=== PATIENT | female | born 1945 | race Caucasian/White ===

== ENCOUNTER 2025-10-26 17:47 | Observation (INO) ==
--- NOTE | 2025-10-26 18:29 | Emergency Department Note ---
Impression & Plan Anemia, Acute renal failure, Acute hyperkalemia, Urinary tract infection ED Provider Note NAME: SAMARA FERRELL AGE: 79 SEX: F : 1945 ARRIVES VIA: Walk-In INFORMANT: Patient, ED PROVIDER(S): Ravin Collins DO CHIEF COMPLAINT: Weakness HPI: The patient is a 79-year-old female who presented to the emergency department for evaluation of generalized weakness. She has a history of renal cell cancer. The patient had routine laboratory studies done. She was told to come to the emergency department for possible transfusion. The patient denies having any current rectal bleeding. She states that several days ago she did note some bloody stool but this was very short-lived. She denies having any vomiting. She denies having any chest pain. She has had some shortness of breath with exertion. ROS: See above HPI for pertinent positives & negatives. A total of 10 systems reviewed and were otherwise negative. PAST MEDICAL HISTORY: See Below PAST SURGICAL HISTORY: See Below FAMILY HISTORY: See Below SOCIAL HISTORY: See Below HOME MEDICATIONS: See Below ALLERGIES: See Below VITALS: See Below PHYSICAL EXAMINATION: GENERAL: Patient is awake alert in no acute distress patient is resting comfortably and showing no signs of anxiety EYES: The conjunctivae are clear. The pupils are round and reactive. EARS, NOSE, MOUTH AND THROAT: The nose is without any evidence of any deformity. NECK: The neck is nontender and supple. RESPIRATORY: Normal respiratory effort is noted there is no evidence of wheezing rhonchi or rales CARDIOVASCULAR: Regular rate and rhythm noted there no murmurs rubs or gallops normal S1 normal S2. GASTROINTESTINAL: The abdomen is soft. Abdomen is nontender. MUSCULOSKELETAL/EXTREMITIES: There is no evidence of gross deformity full range of motion is noted in the hips and shoulders. SKIN: There is no obvious evidence of any rash. There are no petechiae, pallor or cyanosis noted. NEUROLOGIC: Patient is awake alert and oriented x3 MEDICAL DECISION MAKING: The patient is a 79-year-old female who presented to the emergency department for an evaluation. The patient has been experiencing generalized weakness. She also had some episodes of blood per rectum last week. The patient was sent for laboratory studies and was told to go to the emergency department because of anemia. The patient had stable vital signs in emergency department. I discussed the patient's laboratory and radiographic studies with her. She was also found to have a significant elevation in her creatinine compared to baseline as well as an elevated potassium. She was treated with IV fluids IV dextrose IV insulin and DuoNeb therapy. She did have a [place] placed. She was found have signs of urinary tract infection. She was started on antibiotics. I discussed her condition with the on-call [facility] hospitalist. They have agreed to evaluate the patient in the emergency department for further management and disposition. Triage Nursing notes reviewed. Prior medical records reviewed Vital Signs: reviewed and remarkable for no significant abnormalities Differential diagnosis: Infection, dehydration, metabolic abnormality, hypo/hyperglycemia, electrolyte disturbance, anemia, hypoxia, cardiac sources, intracerebral event, toxicologic, neurologic, as well as other pathologies. ER treatment provided: See below Diagnostics interpreted by me: ECG: EKG was obtained in the emergency department. My interpretation is normal sinus rhythm at 71 bpm. There is no ectopy. Low voltage was noted throughout. Nonspecific T wave abnormalities were also appreciated. QTc was 412 ms. Cardiac Monitoring: An order was placed for continuous cardiac monitoring. The monitor shows a rate of 87 bpm with sinus rhythm. Laboratory studies: As stated above and show below. Imaging studies: See below. Radiographic imaging was reviewed by myself Consultation(s): Dr. Hastings was notified about the patient. He will evaluate the patient in the emergency department. ED COURSE: Procedures: none Critical Care: I have personally spent greater than 40 minutes of critical care time in the direct management of this patient. This includes bedside care, interpretation of diagnostic studies, and testing, discussion with consultants, patient, and family members, and other required patient management activities. This 40 minutes is in excess of all separately billable procedures. 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 Peak velocity 4.0 m/s. Bilateral carotid artery stenosis Carotid duplex 06/28/25 noted JOSE > 70% stenosis. 50-69% LICA stenosis. Patient was referred by cardio to neuro vascular (Dr. Noble) who obtained updated carotid duplex done 08/31/25 that showed < 50% B/L ICA stenosis. 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 [place] Hx of cholecystectomy H/O carpal tunnel repair R/L Status post subacromial decompression Distal clavicle with Left shoulder surgery () Status post labral repair of shoulder Left shoulder () H/O bilateral breast reduction surgery H/O tubal ligation H/O hernia repair Incisional hernia Hx of appendectomy Family History Mother Hypercholesterolemia Myocardial infarction Hypertension Brother Hypercholesterolemia Myocardial infarction Hypertension Grandmother (Maternal) Diabetes Other No family history of adverse response to anesthesia Social History Smoking Status: Never smoker Second Hand Exposure: No; Do You Dip or Chew Tobacco: No; Hx Alcohol Use: No Hx Substance Use: No Preferred Language: Romanian Communication Ability: Effective Oracle Apex Developer Required: No Beliefs That Will Affect Care: None Current Living Situation: Spouse current occupational status: disabled Other Information That Helps Us Care for You: No Feels Safe at Home: Yes Safety Concerns: Feels Safe At This Time caffeine: Yes (coffee-daily) Seatbelt Use: always Assistive Devices: Cane and Walker Allergies Allergies Allergy/AdvReac Type Severity Reaction Status Date / Time Penicillins Allergy Severe hives and Verified 09/29/25 09:54 headache Home Meds Home Medications Medication Instructions Recorded Confirmed albuterol sulfate 90 mcg/actuation 2 puff inhalation QID PRN SOB, 08/17/24 09/29/25 aerosol inhaler cough ferrous gluconate 240 mg (27 mg 240 mg PO QAM 08/17/24 09/29/25 iron) tablet fluticasone 250 mcg-salmeterol 50 1 inh inhalation BID 08/17/24 09/29/25 mcg/dose blistr powdr for inhalation (Advair Diskus) montelukast 10 mg tablet 10 mg PO HS 08/17/24 09/29/25 (Singulair) rosuvastatin 10 mg tablet 10 mg PO HS 08/17/24 09/29/25 sertraline 100 mg tablet 100 mg PO BID 08/17/24 09/29/25 trazodone 150 mg tablet 150 mg PO HS 08/17/24 09/29/25 aspirin 81 mg chewable tablet 81 mg PO HS 09/06/25 09/29/25 losartan 100 mg tablet 100 mg PO QAM 09/29/25 09/29/25 multivitamin 1 tab PO QAM 09/29/25 09/29/25 Previous Rx's Medication Instructions Recorded oxybutynin chloride 5 mg tablet 5 mg PO BID #90 tabs 09/06/25 oxybutynin chloride 5 mg tablet 5 mg PO Q8H PRN bladder spasms #10 10/11/25 tabs phenazopyridine 200 mg tablet 200 mg PO Q8H PRN pain #10 tabs 10/11/25 (Pyridium) tamsulosin 0.4 mg capsule 0.4 mg PO HS #30 caps 10/11/25 ciprofloxacin HCl 500 mg tablet 500 mg PO BID #14 tabs 10/20/25 (Cipro) Results & Data (ED) Vital Signs Vital Signs - 24 hr 10/26/25 17:50 10/26/25 18:51 10/26/25 18:51 Temperature 36.7 C Temperature Source Temporal Artery Scan Pulse Rate 76 80 81 Pulse Rate [Right Finger] Pulse Rate from SpO2 Sensor 81 Respiratory Rate 18 29 H Respiratory Effort / Characteristics Non-Labored Spontaneous Respiratory Depth Normal Blood Pressure 117/56 L 140/90 Blood Pressure Mean 76 106 Blood Pressure Position Sitting Pulse Oximetry 99 97 Oxygen Delivery Method Room Air Sepsis Recent Fever Within 48 Hours No Sepsis New/Unexplained Change in Mental Status No Sepsis Action Taken by Nursing No Action Required 10/26/25 19:00 10/26/25 20:00 10/26/25 20:13 Temperature Temperature Source Pulse Rate 78 71 Pulse Rate [Right Finger] 73 Pulse Rate from SpO2 Sensor Respiratory Rate 18 16 15 Respiratory Effort / Characteristics Non-Labored Spontaneous Respiratory Depth Blood Pressure 125/97 133/79 Blood Pressure Mean 106 97 Blood Pressure Position Pulse Oximetry 99 99 99 Oxygen Delivery Method Room Air Sepsis Recent Fever Within 48 Hours Sepsis New/Unexplained Change in Mental Status Sepsis Action Taken by Nursing 10/26/25 20:31 Temperature Temperature Source Pulse Rate 96 H Pulse Rate [Right Finger] Pulse Rate from SpO2 Sensor Respiratory Rate 18 Respiratory Effort / Characteristics Respiratory Depth Blood Pressure 164/94 H Blood Pressure Mean 131 Blood Pressure Position Pulse Oximetry 100 Oxygen Delivery Method Nebulizer Sepsis Recent Fever Within 48 Hours Sepsis New/Unexplained Change in Mental Status Sepsis Action Taken by [facility] Medications Current Medication List: was personally reviewed by me Laboratory Data Attestation: I reviewed the patient's lab results. 10/26/25 18:29 10/26/25 21:39 Lab Results 10/26/25 10/26/25 10/26/25 Range/Units 18:29 19:16 20:30 WBC 3.16 L (4.8-10.8) K/ul RBC 2.26 L (4.20-5.40) M/uL Hgb 6.5 L* (12.0-16.0) g/dL Hct 20.0 L* (37.0-47.0) % MCV 88.5 (80.0-100.0) fL MCH 28.8 (25.0-34.0) pg MCHC 32.5 (32.0-36.0) g/dL RDW Std Deviation 44.9 (36.4-46.3) fL RDW Coeff of Shereen 14.0 (11.5-14.5) % Plt Count 136 (130-400) K/uL MPV 10.2 (9.4-12.4) fL Immature Gran % (Auto) 0.6 % Neut % (Auto) 63.4 % Lymph % (Auto) 24.1 % Cass % (Auto) 6.3 % Eos % (Auto) 4.7 % Baso % (Auto) 0.9 % Neut # (Auto) 2.00 (1.40-6.50) K/uL Lymph # (Auto) 0.76 L (1.20-3.40) K/uL Cass # (Auto) 0.20 (0.11-0.59) K/uL Eos # (Auto) 0.15 (0.00-0.50) K/uL Baso # (Auto) 0.03 (0.00-0.20) K/uL Immature Gran # (Auto) 0.02 (0.01-0.20) K/uL Polychromasia 1+ PT 11.4 (9.0-12.0) Seconds INR 1.1 (0.9-1.1) APTT 27 (21-31) Seconds PTT Ratio 1.0 Sodium 136 (136-145) mmol/L Potassium 6.1 H* (3.5-5.1) mmol/L Chloride 111 H (98-107) mmol/L Carbon Dioxide 18 L (21-32) mmol/L Anion Gap 7 (3-11) BUN 100 H (6-23) mg/dl Creatinine 4.41 H (0.6-1.2) mg/dl Est Cr Clr Drug Dosing 10.5 ml/min eGFR 9.78 BUN/Creatinine Ratio 22.7 H (10-20) Glucose 102 H (70-99(Fasting)) mg/dl Calcium 9.1 (8.6-10.3) mg/dl Total Bilirubin 0.2 (0.2-1.0) mg/dl AST 10 L (13-39) U/L ALT 7 (7-52) U/L Alkaline Phosphatase 53 (34-104) U/L Total Creatine Kinase 38 (26-192) U/L Troponin I High Sens 16.0 H (0-14) pg/ml Total Protein 6.3 (6.0-8.3) gm/dl Albumin 3.6 (3.4-5.0) gm/dl Globulin 2.7 (2.5-4.0) gm/dl Albumin/Globulin Ratio 1.3 (0.9-2) Lipase 34 (11-82) U/L Urine Color Jackson Urine Appearance Turbid A (Clear) Urine pH 5.0 (4.5-7.5) Ur Specific [place] 1.016 (1.000-1.030) Urine Protein 3+ H (Negative) Urine Glucose (UA) Negative (Negative) Urine Ketones Negative (Negative) Urine Blood 3+ H (Negative) Urine Nitrite Negative (Negative) Urine Bilirubin 1+ H (Negative) Urine Urobilinogen Negative (Negative) Ur Leukocyte Esterase 3+ H (Negative) Urine WBC (Auto) >50 H (0-5) /hpf Urine RBC (Auto) >20 H (0-2) /hpf U Hyaline Cast (Auto) 3-5 H (0-2) /lpf U Epithel Cells (Auto) 11-20 H (0-2) /hpf Urine Bacteria (Auto) 3+ H (None Seen) Amorphous Sediment Present A (None Prsent) Urine Comment Blood Type A Positive Blood Type Recheck Antibody Screen NEGATIVE Crossmatch See Detail 10/26/25 Range/Units 20:49 WBC (4.8-10.8) K/ul RBC (4.20-5.40) M/uL Hgb (12.0-16.0) g/dL Hct (37.0-47.0) % MCV (80.0-100.0) fL MCH (25.0-34.0) pg MCHC (32.0-36.0) g/dL RDW Std Deviation (36.4-46.3) fL RDW Coeff of Shereen (11.5-14.5) % Plt Count (130-400) K/uL MPV (9.4-12.4) fL Immature Gran % (Auto) % Neut % (Auto) % Lymph % (Auto) % Cass % (Auto) % Eos % (Auto) % Baso % (Auto) % Neut # (Auto) (1.40-6.50) K/uL Lymph # (Auto) (1.20-3.40) K/uL Cass # (Auto) (0.11-0.59) K/uL Eos # (Auto) (0.00-0.50) K/uL Baso # (Auto) (0.00-0.20) K/uL Immature Gran # (Auto) (0.01-0.20) K/uL Polychromasia PT (9.0-12.0) Seconds INR (0.9-1.1) APTT (21-31) Seconds PTT Ratio Sodium (136-145) mmol/L Potassium (3.5-5.1) mmol/L Chloride (98-107) mmol/L Carbon Dioxide (21-32) mmol/L Anion Gap (3-11) BUN (6-23) mg/dl Creatinine (0.6-1.2) mg/dl Est Cr Clr Drug Dosing ml/min eGFR BUN/Creatinine Ratio (10-20) Glucose (70-99(Fasting)) mg/dl Calcium (8.6-10.3) mg/dl Total Bilirubin (0.2-1.0) mg/dl AST (13-39) U/L ALT (7-52) U/L Alkaline Phosphatase (34-104) U/L Total Creatine Kinase (26-192) U/L Troponin I High Sens (0-14) pg/ml Total Protein (6.0-8.3) gm/dl Albumin (3.4-5.0) gm/dl Globulin (2.5-4.0) gm/dl Albumin/Globulin Ratio (0.9-2) Lipase (11-82) U/L Urine Color Urine Appearance (Clear) Urine pH (4.5-7.5) Ur Specific [place] (1.000-1.030) Urine Protein (Negative) Urine Glucose (UA) (Negative) Urine Ketones (Negative) Urine Blood (Negative) Urine Nitrite (Negative) Urine Bilirubin (Negative) Urine Urobilinogen (Negative) Ur Leukocyte Esterase (Negative) Urine WBC (Auto) (0-5) /hpf Urine RBC (Auto) (0-2) /hpf U Hyaline Cast (Auto) (0-2) /lpf U Epithel Cells (Auto) (0-2) /hpf Urine Bacteria (Auto) (None Seen) Amorphous Sediment (None Prsent) Urine Comment Blood Type Blood Type Recheck A Positive Antibody Screen Crossmatch Administered Medications Discontinued Medications Albuterol (Albut/Ipratrop 3mg/0.5mg Neb 3 Ml Vial) 12 ml NEB ONE ONE; Protocol Stop: 10/26/25 19:16 Last Admin: 10/26/25 20:13 Dose: 12 ml Documented By: LIBBY Dextrose (Dextrose 50% 50 Ml Syringe) 50 ml IV NOW ONE Stop: 10/26/25 19:16 Last Admin: 10/26/25 20:33 Dose: 50 ml Documented By: JOSSUE Sodium Chloride (Nss) 500 mls @ 999 mls/hr IV .Q31M ONE Stop: 10/26/25 19:45 Last Infusion: 10/26/25 21:04 Dose: Infused Documented By: Admin: 10/26/25 20:33 Dose: 999 mls/hr Documented By: JOSSUE Calcium Chloride 1,000 mg/ (Dextrose) 60 mls @ 240 mls/hr IV NOW STA Stop: 10/26/25 19:29 Last Infusion: 10/26/25 20:47 Dose: Infused Documented By: Admin: 10/26/25 20:32 Dose: 240 mls/hr Documented By: JOSSUE Insulin Human Regular (Novolin-R Insulin Per Unit Charge) 10 units IV NOW STA Stop: 10/26/25 19:16 Last Admin: 10/26/25 20:32 Dose: 10 units Documented By: JOSSUE Co-signed By: abl Imaging Data Attestation: I personally reviewed and interpreted this imaging study as follows: My Impression: 1 view chest x-ray was obtained in the emergency department. My interpretation is no free air or definite infiltrate, final report below. Radiologist's Impression: Chest X-Ray 10/26/25 18:07 Clinical History: Weakness Technique: A frontal view of the chest was obtained Findings: There are no confluent pulmonary infiltrates. The heart is mildly enlarged. No pleural effusion or pneumothorax is seen. There is no definite pulmonary nodule. No fracture is noted. No foreign body is seen Impression: Mild cardiomegaly Electronically signed by Anegl Cisneros 10-26-2025 7:36 PM Discharge Plan Visit Data Chief Complaint: Referred by Doctor Stated Complaint: BLOOD TRANSFUSION, SENT BY ED Provider: Ravin Collins Discharge Problem: Anemia, Acute renal failure, Acute hyperkalemia, Urinary tract infection Patient Disposition: Admitted As Inpatient Condition: Fair Discharge Instructions Interventions: ED Discharge Assessment Last Done: 10/26/25 22:27
[2025-10-26 18:51] LABS: Hematocrit (blood only) 20.0 % (37.0-47.0); Hemoglobin 6.5 g/dL (12.0-16.0); Mean Corpuscular Hemoglobin 28.8 pg (25.0-34.0); Mean Corpuscular Volume 88.5 fL (80.0-100.0); Platelet Count 136 K/uL (130-400); RDW Standard Deviation 44.9 fL (36.4-46.3); Red Blood Count 2.26 M/uL (4.20-5.40); White Blood Count 3.16 K/ul (4.8-10.8)
[2025-10-26 19:10] LABS: Alanine Aminotransferase 7.0 U/L (7-52); Albumin Globulin Ratio 1.3 (0.9-2); Albumin Level 3.6 gm/dl (3.4-5.0); Alkaline Phosphatase 53.0 U/L (34-104); Anion Gap 7.0 (3-11); Bilirubin,Total 0.2 mg/dl (0.2-1.0); Blood Urea Nitrogen 100.0 mg/dl (6-23); Calcium 9.1 mg/dl (8.6-10.3); Carbon Dioxide 18.0 mmol/L (21-32); Chloride 111.0 mmol/L (98-107); Creatinine Clr Calc Pharmacy 10.5 ml/min; Globulin 2.7 gm/dl (2.5-4.0); Glucose 102.0 mg/dl (70-99(Fasting)); Lipase 34.0 U/L (11-82); Potassium 6.1 mmol/L (3.5-5.1); Sodium 136.0 mmol/L (136-145); Total Protein 6.3 gm/dl (6.0-8.3)
[2025-10-26 19:14] LABS: Immature Granulocytes # (auto) 0.02 K/uL (0.01-0.20); Immature Granulocytes % (auto) 0.6 %; Polychromasia 1+
[2025-10-26 19:17] LABS: INR 1.1 (0.9-1.1); Partial Thromboplastin Time 27 Seconds (21-31); Prothrombin Time 11.4 Seconds (9.0-12.0)
--- NOTE | 2025-10-26 19:36 | XRay Report ---
Clinical History: Weakness Technique: A frontal view of the chest was obtained Findings: There are no confluent pulmonary infiltrates. The heart is mildly enlarged. No pleural effusion or pneumothorax is seen. There is no definite pulmonary nodule. No fracture is noted. No foreign body is seen Impression: Mild cardiomegaly Electronically signed by Angel Cisneros 10-26-2025 7:36 PM
[2025-10-26] MEDS: ALBUT/IPRATROP 3MG/0.5MG NEB 3 ML VIAL NEB ONE (20:13)
--- NOTE | 2025-10-26 20:30 | History & Physical Report ---
Date of Service October 26, 2025 Assessment & Plan (1) Anemia: (2) Acute hyperkalemia: (3) Acute renal failure: (4) Urinary tract infection: Plan 79-year-old female PMHx HTN, COPD, depression, asthma, CKD, OAB, renal pelvis transitional cell malignant neoplasm, and anemia presenting for weakness and after being referred by outside hospital. Her evaluation is significant for profound anemia at 6.5/20.0 with a potassium of 6.1, BUN of 100, creatinine of 4.41. Troponin is also elevated at 16. Imaging is with cardiomegaly, no other acute findings. Admission for symptomatic anemia in setting of hyperkalemia and IVORY. #Anemia C/o weakness, seen by outside facility and referred to ED; denies bleeding. Recent /nephro surgery 10/11/2025, was having bleeding from kidney prior to procedure, none since but has continued to feel weak. No anemia before per pt, but on ferrous sulfate?. No recent NSAID use, no alcohol use. ASA daily. - H&H 6.5/20, stable platelets; BUN 100; troponin 16 - Iron panel, ferritin, vitamin B12, folate pending - CTAP pending - Hold ASA - 2U PRBCs now - trend H/H - Consider consult pending CTAP results - Consider heme/onc consult - none at time of admission #Hyperkalemia Asymptomatic currently, received insulin 10 units, calcium chloride 1 g, dextrose, and albuterol nebulizer in ED. - K 6.1 --> Repeat 4.9 - repeat AM - EKG NSR - monitor on tele #IVORY/UTI In setting of profound anemia, IVORY likely secondary to such. Increased urination per pt. - Cr 4.41, BUN 100 - UA (+) infection - Repeat BMP following PRBCs - Ceftriaxone IV - continue #Asthma- Albuterol, montelukast - continue once confirmed #HTN- Losartan - hold for now, soft pressures #OAB- Oxybutynin, tamsulosin - continue once confirmed #HLD- Rosuvastatin - continue once confirmed #Psych- Sertraline, trazodone - continue once confirmed Unable to confirm meds at time of admission. Dispo: Obs, PCU VTE prophylaxis: SCDs This document was dictated utilizing [employer]. Please excuse any grammatical errors that may be secondary to use of this software. Admission and Anticipated Discharge Date Admission Date: 10/26/2025 History of Present Illness Chief Complaint: Weak Primary Care Provider: Guy Hwang PA-C 79-year-old female PMHx HTN, COPD, depression, asthma, CKD, OAB, renal pelvis transitional cell malignant neoplasm, and anemia presenting for weakness and after being referred by outside hospital. Patient is s/p cystoscopy with TURBT with bilateral retrograde pyelogram (10/11/2025). Patient [facility] and [facility] done and then had her doctor called stating that she needed to go to the hospital because of abnormal labs. She feels that ever since her surgery at the beginning of October, she has just been "falling around" with weak legs and just feeling generalized weakness. She states that she did have a fall earlier the day of arrival, landing on her R arm and she was on the ground for approximately 1 hour before being able to get back up because she was too weak to get herself back up. The day [employer] she also had a fall and was unable to get herself back up for a few hours. She does not have any dizziness or lightheadedness prior to the falls, no SOB. She states that she feels generalized weakness and this has been ongoing since her surgery. During her visit, she does have an onset of chest pain which is rated a 4 out of 10 on the pain scale in the center of her chest and described as a dull pain. It came on rather quickly, was with no associated symptoms to include no SOB, diaphoresis, or palpitations. Her breathing treatment was removed, she was sat up in the bed, EKG was obtained, and her symptoms started to resolve some. She is having increased urinary frequency otherwise she has not had any chest pain, SOB, palpitations, abdominal pain, vomiting/diarrhea/constipation, URI symptoms, additional LUTS, syncope, or loss of consciousness. She is to follow-up with urology on November 11 for an operation on her left kidney. ED evaluation reveals CBC with leukopenia at 3.16, H&H 6.5/20, platelets stable; PT/INR WNL; CMP potassium 6.1, chloride 111, CO2 18, BUN 100, creatinine 4.41, ratio 22.7, glucose 102, AST 10; troponin 16; CXR mild cardiomegaly; EKG NSR at 71 bpm.; Provided with 500 mL NSS, regular insulin 10 units IV, calcium chloride 1 g IV, dextrose, and albuterol nebulizer in ED. Please see Dr. Gaxiola attestation for adjustments/additions to treatment plan. Allergies Allergy/AdvReac Type Severity Reaction Status Date / Time Penicillins Allergy Severe hives and Verified 09/29/25 09:54 headache Home Medications Medication Instructions Recorded Confirmed Type albuterol sulfate 90 mcg/actuation 2 puff inhalation QID PRN SOB, 08/17/24 09/29/25 History aerosol inhaler cough ferrous gluconate 240 mg (27 mg 240 mg PO QAM 08/17/24 09/29/25 History iron) tablet fluticasone 250 mcg-salmeterol 50 1 inh inhalation BID 08/17/24 09/29/25 History mcg/dose blistr powdr for inhalation (Advair Diskus) montelukast 10 mg tablet 10 mg PO HS 08/17/24 09/29/25 History (Singulair) rosuvastatin 10 mg tablet 10 mg PO HS 08/17/24 09/29/25 History sertraline 100 mg tablet 100 mg PO BID 08/17/24 09/29/25 History trazodone 150 mg tablet 150 mg PO HS 08/17/24 09/29/25 History aspirin 81 mg chewable tablet 81 mg PO HS 09/06/25 09/29/25 History oxybutynin chloride 5 mg tablet 5 mg PO BID #90 tabs 09/06/25 09/29/25 Rx losartan 100 mg tablet 100 mg PO QAM 09/29/25 09/29/25 History multivitamin 1 tab PO QAM 09/29/25 09/29/25 History phenazopyridine 200 mg tablet 200 mg PO Q8H PRN pain #10 tabs 10/11/25 Rx (Pyridium) tamsulosin 0.4 mg capsule 0.4 mg PO HS #30 caps 10/11/25 Rx ciprofloxacin HCl 500 mg tablet 500 mg PO BID #14 tabs 10/20/25 10/20/25 Rx (Cipro) Past Med/Surg History Problem List (Updated 10/27/25 @ 08:44 by Dallas Peguero DO) Primary papillary carcinoma of bladder Symptomatic anemia Genitourinary bleeding Bacteriuria with pyuria Acute hyperkalemia (Acute) Renal pelvis transitional cell malignant neoplasm Encounter for pre-operative examination Renal cyst (Chronic) CKD (chronic kidney disease) Overactive bladder (Chronic) 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 Peak velocity 4.0 m/s. Bilateral carotid artery stenosis Carotid duplex 06/28/25 noted JOSE > 70% stenosis. 50-69% LICA stenosis. Patient was referred by cardio to neuro vascular (Dr. Noble) who obtained updated carotid duplex done 08/31/25 that showed < 50% B/L ICA stenosis. Pericardial effusion Anxiety Depression Osteoarthritis Degenerative joint disease Hyperlipidemia Hypertension Sleep apnea No machine, unable to tolerate Chronic obstructive pulmonary disease Asthma Chronic kidney disease Stage [address] [facility] [place] Gross hematuria 2/2 bleeding hemangioma in bladder Surgical History History of transesophageal echocardiography (ALAN) 08/2025 [facility] [place] Hx of cholecystectomy H/O carpal tunnel repair R/L Status post subacromial decompression Distal clavicle with Left shoulder surgery () Status post labral repair of shoulder Left shoulder () H/O bilateral breast reduction surgery H/O tubal ligation H/O hernia repair Incisional hernia Hx of appendectomy Family History Mother Hypercholesterolemia Myocardial infarction Hypertension Brother Hypercholesterolemia Myocardial infarction Hypertension Grandmother (Maternal) Diabetes Other No family history of adverse response to anesthesia Social History Smoking Status: Never smoker Second Hand Exposure: No; Do You Dip or Chew Tobacco: No; Hx Alcohol Use: No Hx Substance Use: No Preferred Language: Greek Communication Ability: Effective Abrasive Band Winder Required: No Beliefs That Will Affect Care: None Current Living Situation: Spouse current occupational status: disabled Other Information That Helps Us Care for You: No Feels Safe at Home: Yes Safety Concerns: Feels Safe At This Time caffeine: Yes (coffee-daily) Seatbelt Use: always Assistive Devices: Cane and Walker Review of Systems Review of Systems: All systems reviewed & are unremarkable except as noted in Subjective Physical Exam Physical Exam: General: No acute distress Skin: Warm and dry Head: Normocephalic, atraumatic Eyes: PERRL, conjunctivae clear, sclera non-icteric ENT: External ear and ear canal without swelling; nose atraumatic; good dentition, tongue normal appearance, pharynx normal Neck: Supple, no LAD Cardio: RRR, no M/G/R, S1 and S2 normal Resp: Receiving breathing treatment at time of visit; no respiratory distress, Lungs CTA in all lobes bilaterally, no wheezes, rales, or rhonchi Abdomen: Soft, symmetric, nontender; No masses or hepatosplenomegaly; Bowel sounds normoactive MSK: No deformities; pulses palpable and equal; no edema. Neuro: Awake, alert; Sensation intact bilaterally; CN grossly intact Psych: Appropriate mood and affect; good judgement and insight. Son and male friend present in room at time of visit. Results & Data Results & Data Vital Signs (Past 12 Hours) Vital Signs Temp Pulse Pulse Resp BP Pulse Ox O2 Del Method 10/26/25 20:13 73 15 99 Room Air 10/26/25 18:51 81 10/26/25 18:51 80 29 H 140/90 97 10/26/25 17:50 36.7 C 76 18 117/56 L 99 Room Air Laboratory Results 10/26/25 18:29 WBC 3.16 L RBC 2.26 L Hgb 6.5 L* Hct 20.0 L* MCV 88.5 MCH 28.8 MCHC 32.5 RDW Std Deviation 44.9 RDW Coeff of Shereen 14.0 Plt Count 136 MPV 10.2 Immature Gran % (Auto) 0.6 Neut % (Auto) 63.4 Lymph % (Auto) 24.1 [place] % (Auto) 6.3 Eos % (Auto) 4.7 Baso % (Auto) 0.9 Neut # (Auto) 2.00 Lymph # (Auto) 0.76 L [place] # (Auto) 0.20 Eos # (Auto) 0.15 Baso # (Auto) 0.03 Immature Gran # (Auto) 0.02 Polychromasia 1+ PT 11.4 INR 1.1 APTT 27 PTT Ratio 1.0 Sodium 136 Potassium 6.1 H* Chloride 111 H Carbon Dioxide 18 L Anion Gap 7 BUN 100 H Creatinine 4.41 H Est Cr Clr Drug Dosing 10.5 eGFR 9.78 BUN/Creatinine Ratio 22.7 H Glucose 102 H Calcium 9.1 Total Bilirubin 0.2 AST 10 L ALT 7 Alkaline Phosphatase 53 Troponin I High Sens 16.0 H Total Protein 6.3 Albumin 3.6 Globulin 2.7 Albumin/Globulin Ratio 1.3 Lipase 34 Diagnostic Findings Chest X-Ray 10/26/25 18:07 Clinical History: Weakness Technique: A frontal view of the chest was obtained Findings: There are no confluent pulmonary infiltrates. The heart is mildly enlarged. No pleural effusion or pneumothorax is seen. There is no definite pulmonary nodule. No fracture is noted. No foreign body is seen Impression: Mild cardiomegaly Electronically signed by Angel Cisneros 10-26-2025 7:36 PM Medications Administered 500 mL NSS Regular insulin 10 unit Calcium chloride 1 g IV Dextrose 50 mL Albuterol 12 mL neb ECG Additional Comments: NSR, low voltage QRS 71 bpm, DE 162, QRS 96, QT/QTc 380/412, PRT 46/-29/-3 Code Status & VTE Plan Code Status Full Supervising Physician Co-Signing Physician Notes Attending addendum: I have physically seen this patient, have supervised the NU's activities, and agree with the H&P unless as otherwise noted. Assessment and Plan: The patient is a 79-year-old female with past medical history including hypertension, COPD, depression, asthma, CKD, OAB, renal pelvis transitional cell malignant neoplasm, and anemia. She presents to the emergency department due to generalized weakness. Workup in the emergency department included a hemoglobin of 6.5 hematocrit 20.0, potassium 6.1, BUN 100, creatinine 4.41 with base 2.50. Troponin was mildly elevated 16. Chest x-ray with no acute findings. EKG showed normal sinus rhythm with nonspecific ST-T changes. Anemia- Patient undergone recent /nephro surgery on, and had been having some bleeding from the kidneys prior to that procedure. He had no obvious bleeding since that time. Patient continued to feel weak. She denies any recent NSAID use, but does take aspirin daily. Hemoglobin 6.5. Ordered iron panel, ferritin, B12 and folate levels CT abdomen pelvis pending Holding aspirin Ordered 2 units PRBCs from the ED. Will order H&H. Depending on results of CT scan will discuss possibility of urologic consult Hyperkalemia/acute kidney injury superimposed on CKD- Potassium 6.1 on admission, will follow-up 4.9 after receiving normal saline 500 mL bolus, calcium 1 g IV, 50 mL of D50 followed by 10 units of regular insulin IV, and a DuoNeb. Creatinine 4.41, with base 2.50, with follow-up pending. Urinary tract infection- Follow urine culture and sensitivity Ceftriaxone 2 g IV every 24 hours Hypertension- Hold losartan due to acute kidney injury Remaining orders and notations as noted PG Care Time/CCT Total # of Minutes Spent Total Time Spent with Patient: Total time spent is greater than 50% in coordination of care (as documented) at patient's floor/unit and/or counseling patient: Coding Level of Care Code 73858 INT INP/OBS CARE 3/75MIN Diagnoses Anemia D64.9 Acute hyperkalemia E87.5 Acute renal failure N17.9 Urinary tract infection N39.0
[2025-10-26] MEDS: CALCIUM CHLORIDE 10% 1,000 MG in DEXTROSE 5% 50 ML IV STA (20:32)
[2025-10-26] MEDS: NovoLIN-R INSULIN PER UNIT CHARGE IV STA (20:32)
[2025-10-26] MEDS: DEXTROSE 50% 50 ML SYRINGE IV ONE (20:33)
[2025-10-26] MEDS: SODIUM CHLORIDE 0.9% 500 ML IV ONE (20:33)
[2025-10-26 20:52] LABS: Appearance Urine Turbid (Clear); Bacteria Urine Automated 3+ (None Seen); Glucose Urine UA Negative (Negative); RBC Urine Automated >20 /hpf (0-2); WBC Urine Automated >50 /hpf (0-5)
[2025-10-26] MEDS ORDERED: SODIUM CHLORIDE 0.9% 100 ML IV PRN (21:03)
[2025-10-26 21:26] LABS: Creatine Kinase 38.0 U/L (26-192)
[2025-10-26 22:09] LABS: Anion Gap 8.0 (3-11); Blood Urea Nitrogen 100.0 mg/dl (6-23); Calcium 9.5 mg/dl (8.6-10.3); Carbon Dioxide 16.0 mmol/L (21-32); Chloride 114.0 mmol/L (98-107); Creatinine Clr Calc Pharmacy 11.0 ml/min; Glucose 131.0 mg/dl (70-99(Fasting)); Potassium 4.9 mmol/L (3.5-5.1); Sodium 138.0 mmol/L (136-145)
[2025-10-26] MEDS ORDERED: ONDANSETRON INJ 2 MG/ML 2 ML VIAL IV PRN (22:39)
[2025-10-26] MEDS ORDERED: MELATONIN 3 MG TAB PO PRN (22:39)
[2025-10-26] MEDS ORDERED: POLYETHYLENE (MIRALAX) 17 GM PACK PO PRN (22:39)
[2025-10-26] MEDS ORDERED: INFLUENZA VACC TS2025-26(65y+)/PF (IIV3) 0.5mL Syr IM ONE (23:13)
[2025-10-27] MEDS: cefTRIAXone SODIUM 2,000 MG/50 ML BAG IV ONE (01:40)
--- NOTE | 2025-10-27 02:08 | CT Scan Report ---
Exam(s): CT ABDOMEN + PELVIS Without Contrast EXAM: CT Abdomen and Pelvis Without Intravenous Contrast CLINICAL HISTORY: Reason for exam: Anemia, r/o post op bleeding. TECHNIQUE: Axial computed tomography images of the abdomen and pelvis without intravenous contrast. CTDI is 27.94 mGy and DLP is 1349.98 mGy-cm. Automated exposure control was utilized for the study. A dose lowering technique was utilized adhering to the principles of ALARA. COMPARISON: No relevant prior studies available. FINDINGS: Heart: Small to moderate-sized pericardial effusion. ABDOMEN: Liver: Unremarkable. Gallbladder and bile ducts: Cholecystectomy. No ductal dilation. Pancreas: Unremarkable. No ductal dilation. Spleen: Unremarkable. No splenomegaly. Adrenals: Unremarkable. No mass. Kidneys and ureters: Numerous cysts in the right kidney. The larger ones are homogeneous and of fluid density and appear to represent simple cysts. There is no hydronephrosis or dilated ureter. A left ureteral stent is seen in place. Stomach and bowel: Diverticulosis without evidence of diverticulitis. No obstruction. PELVIS: Appendix: No findings to suggest acute appendicitis. Bladder: Hermosillo catheter in the bladder. No stones. ABDOMEN and PELVIS: Intraperitoneal space: Unremarkable. No free air. No significant fluid collection. Bones/joints: No acute findings. Soft tissues: Unremarkable. Vasculature: Unremarkable. No abdominal aortic aneurysm. Lymph nodes: Unremarkable. No enlarged lymph nodes. IMPRESSION: No acute findings in the abdomen or pelvis. No evidence of hemoperitoneum. Electronically signed by: Ricco Keita MD 10/27/25 02:07 AM
[2025-10-27 06:31] LABS: Hematocrit (blood only) 23.9 % (37.0-47.0); Hemoglobin 8.0 g/dL (12.0-16.0)
[2025-10-27 07:03] LABS: Iron 221.0 mcg/dl (35-150); Total Iron Binding Cap Calc 221.0 mcg/dl (250-450); Transferrin 158.0 mg/dl (200-360); Transferrin (FE) Percent Satur 100.0 % (15-50)
[2025-10-27 07:13] LABS: Folate (Folic Acid),Ser orPlas 22.23 ng/ml (>5.38)
[2025-10-27 07:14] LABS: Vitamin B12 372.0 pg/ml (180-914)
[2025-10-27 07:23] LABS: Ferritin 70.6 ng/ml (8-388)
[2025-10-27 07:33] LABS: Anion Gap 7.0 (3-11); Blood Urea Nitrogen 93.0 mg/dl (6-23); Calcium 8.6 mg/dl (8.6-10.3); Carbon Dioxide 16.0 mmol/L (21-32); Chloride 114.0 mmol/L (98-107); Creatinine Clr Calc Pharmacy 11.7 ml/min; Glucose 97.0 mg/dl (70-99(Fasting)); Potassium 6.0 mmol/L (3.5-5.1); Sodium 137.0 mmol/L (136-145)
[2025-10-27] MEDS: INSULIN HUMAN REGULAR PER UNIT 10 UNITS in SYRINGE 9.9 ML IV STA (08:01)
[2025-10-27] MEDS: CALCIUM GLUCONATE 1,000 MG/60 ML BAG IV STA (08:02)
[2025-10-27] MEDS: DEXTROSE 50% 50 ML SYRINGE IV STA (08:02)
[2025-10-27] MEDS: SODIUM ZIRCONIUM CYCLOSILICATE 10 GM PACKET PO SCH (09:10)
--- NOTE | 2025-10-27 11:00 | Electrocardiogram Report ---
Test Reason : Blood Pressure : */* mmHG Vent. Rate : 71 BPM Atrial Rate : 71 BPM P-R Int : 162 ms QRS Dur : 96 ms QT Int : 380 ms P-R-T Axes : 46 -29 -3 degrees QTcB Int : 412 ms Normal sinus rhythm Low voltage QRS Possible Anterolateral infarct , age undetermined Abnormal ECG No previous ECGs available Confirmed by Petros Garcia ([id number]) on 10/27/2025 11:00:12 AM Referred By: Confirmed By: Petros Garcia
--- NOTE | 2025-10-27 16:19 | Discharge Summary ---
Discharge Summary Date of Service October 27, 2025 Principal Dx & Hospital Course #1 = Principal Diagnosis (1) Primary papillary carcinoma of bladder: (2) Symptomatic anemia: (3) Genitourinary bleeding: (4) Bacteriuria with pyuria: (5) Acute hyperkalemia: Plan In summary this is a 79-year-old female who initially presented to the emergency department by referral of their physicians office due to abnormal laboratory assessment resulting in found anemia of which the patient was symptomatic In further review of the patient's medical record it appears that they are undergoing active assessment of a bladder and renal lesion; the former which biopsy obtained on 10/10 did reveal papillary carcinoma without greater severity able to be ascertained. Repeat imaging obtained since that time and reviewed the patient's urologic outpatient visits reveals concern for possible primary or secondary renal lesion. The patient's presenting anemia is likely subacute in nature based on their hemodynamic stability at initial presentation and minimal symptoms. Despite this, the patient is adamant for discharge. With transfusion of 2 units, the patient's hemoglobin did respond appropriately however a Hermosillo catheter had been placed which at the time of my assessment does have deeply brown/violaceous discoloration consistent with hematuria without any juanito clot formation though this was noted on the patient's cystoscopy in review of the patient's outpatient chart. Risks of discharge were reviewed, the patient remained focused on discharge given the holiday and return precautions were provided Furthermore, the patient was found to be persistently hyperkalemic with initial interventions provided in the emergency department, she remained hyperkalemic to a measure of 6.0 on the morning of 10/27. Additional interventions were provided including stabilizing measures with calcium gluconate, insulin, D5W with direct management including oral Lokelma. Risks of leaving the hospital before full resolution and determination of the cause of this condition were reviewed with the patient including life-threatening arrhythmias however the patient remained adamant for discharge. Notes For Next Care Provider Patient identified high risk for 30- day readmission given the lack of resolution and identification of causes leading to their initial presentation. Our hospitalist team would be glad to discuss any details of the hospital stay with you, please reach out by [facility] with a good call back number and we will return your call. Admission HPI Per Admitting Provider 79-year-old female PMHx HTN, COPD, depression, asthma, CKD, OAB, renal pelvis transitional cell malignant neoplasm, and anemia presenting for weakness and after being referred by outside hospital. Patient is s/p cystoscopy with TURBT with bilateral retrograde pyelogram (10/11/2025). Patient reports [facility] and [facility] work done and then had her doctor called stating that she needed to go to the hospital because of abnormal labs. She feels that ever since her surgery at the beginning of October, she has just been "falling around" with weak legs and just feeling generalized weakness. She states that she did have a fall earlier the day of arrival, landing on her R arm and she was on the ground for approximately 1 hour before being able to get back up because she was too weak to get herself back up. The day [employer] she also had a fall and was unable to get herself back up for a few hours. She does not have any dizziness or lightheadedness prior to the falls, no SOB. She states that she feels generalized weakness and this has been ongoing since her surgery. During her visit, she does have an onset of chest pain which is rated a 4 out of 10 on the pain scale in the center of her chest and described as a dull pain. It came on rather quickly, was with no associated symptoms to include no SOB, diaphoresis, or palpitations. Her breathing treatment was removed, she was sat up in the bed, EKG was obtained, and her symptoms started to resolve some. She is having increased urinary frequency otherwise she has not had any chest pain, SOB, palpitations, abdominal pain, vomiting/diarrhea/constipation, URI symptoms, additional LUTS, syncope, or loss of consciousness. She is to follow-up with urology on November 11 for an operation on her left kidney. ED evaluation reveals CBC with leukopenia at 3.16, H&H 6.5/20, platelets stable; PT/INR WNL; CMP potassium 6.1, chloride 111, CO2 18, BUN 100, creatinine 4.41, ratio 22.7, glucose 102, AST 10; troponin 16; CXR mild cardiomegaly; EKG NSR at 71 bpm.; Provided with 500 mL NSS, regular insulin 10 units IV, calcium chloride 1 g IV, dextrose, and albuterol nebulizer in ED. Please see Dr. Gaxiola attestation for adjustments/additions to treatment plan. Discharge Exam General: Elderly female in no acute distress Vital Signs: Reviewed HEENT: Tacky mucous membranes Pulmonary: Symmetric chest wall excursion without restriction; clear to auscultation bilaterally Cardiovascular: Regular rate and rhythm without murmurs, rubs, or gallops; S1 and S2 normal; right radial pulse 2+ Genitourinary: Hermosillo catheter in place with translucent ready/violaceous discolored urine without juanito sediment Neurologic: Cranial nerves II through XII grossly intact; no discernible focal weakness nor paresthesia Skin: Left upper extremity antecubital IV site infiltration with mild erythema, slight tenderness to palpation Discharge Plan Discharge Items Patient Disposition: Against Medical Advice Reason For Visit: ANEMIA, WEAK, HYPERKALEMIA Condition on Discharge: Fair Activity: Per Instructions section Non-emergency contact: Primary Care Provider, Oncologist and Urologist Follow-up/Referrals: Jaspal Mcgee DO [Surgeon] - Sudhir Mata DO [Physician] - Guy Hwang PA-C [Primary Care Provider] - Fluids: 2000ml (8 cups) Pending Studies at Discharge: No Stand-Alone Forms: My [facility] Skilled Items Patient informed of condition?: Yes DNR: No Discharge Level of Care: Other Communicable Disease: No Discharge Prognosis: Other Medications and DC Order Prescriptions: Continued albuterol sulfate 90 mcg/actuation HFA aerosol inhaler 2 puff inhalation QID PRN (Reason: SOB, cough) ferrous gluconate 240 mg (27 mg iron) tablet 240 mg PO QAM fluticasone propion-salmeterol [Advair Diskus] 250-50 mcg/dose blister with device 1 inh inhalation BID montelukast [Singulair] 10 mg tablet 10 mg PO HS rosuvastatin 10 mg tablet 10 mg PO HS sertraline 100 mg tablet 100 mg PO BID trazodone 150 mg tablet 150 mg PO HS oxybutynin chloride 5 mg tablet 5 mg PO BID Qty: 90 3RF ciprofloxacin HCl [Cipro] 500 mg tablet 500 mg PO BID Qty: 14 0RF losartan 100 mg tablet 100 mg PO QAM multivitamin Tablet 1 tab PO QAM phenazopyridine [Pyridium] 200 mg tablet 200 mg PO Q8H PRN (Reason: pain) Qty: 10 0RF tamsulosin 0.4 mg capsule 0.4 mg PO HS Qty: 30 0RF Held aspirin 81 mg tablet,chewable 81 mg PO HS Hold Instructions: Resume on 11/02/25. Discontinued oxybutynin chloride 5 mg tablet 5 mg PO Q8H PRN (Reason: bladder spasms) Qty: 10 0RF Discharge Orders: Left Against Medical Advice (Routine); Ordered 10/27/25 Ordered By: Dallas Peguero Admission Data Admit Date/Time: 10/26/25 21:03 Attending Provider: Dallas Peguero Admit Provider: Pee Gaxiola Primary Care Provider: Guy Hwang Other Providers: Pee Gaxiola Hospital Stay Data Consultations 10/26/25 19:11 ED Decision to Admit Stat Diagnostic Imagining Performed 10/26/25 20:34 CT Abd and Pelvis [CT abd pelvis wo con] Stat Pending Results Patient Have Any Pending Studies at Discharge: No Total Time Total Time Spent Total Time Spent (In Minutes): I personally spent 80 minutes in the coordination of today's discharge including bedside counseling with a prolonged discussion of concerns for the patient's departure from the hospital prematurely resulting in documentation for the patient leaving against medical advice in addition to physical exam and medication reconciliation with further review of the patient's outpatient medical record to inform clinical decisions while admitted to the hospital Coding Level of Care Code 66524 INP/OBS DISCH >30 MIN Diagnoses Primary papillary carcinoma of bladder C67.9 Symptomatic anemia D64.9 Genitourinary bleeding R31.9 Bacteriuria with pyuria R82.71; R82.81 Acute hyperkalemia E87.5
[2025-10-27] MEDS ORDERED: cefTRIAXone SODIUM 2,000 MG/50 ML BAG IV SCH (22:00)
--- NOTE | 2025-10-28 10:01 | Electrocardiogram Report ---
Test Reason : Blood Pressure : */* mmHG Vent. Rate : 108 BPM Atrial Rate : 108 BPM P-R Int : 176 ms QRS Dur : 98 ms QT Int : 316 ms P-R-T Axes : 72 -56 93 degrees QTcB Int : 423 ms Sinus tachycardia with Premature supraventricular complexes and with occasional Premature ventricular complexes Low voltage QRS Left anterior fascicular block Possible Anterolateral infarct (cited on or before 26-Oct-2025) Abnormal ECG When compared with ECG of 26-Oct-2025 18:20, Premature ventricular complexes are now Present Premature supraventricular complexes are now Present Vent. rate has increased by 37 bpm T wave inversion now evident in Lateral leads Confirmed by Ravin Ma [id number]) on 10/28/2025 10:00:59 AM Referred By: REFERRED SELF Confirmed By: Ravin Ma
== END 2025-10-27 12:17 | disposition left against medical advice (07) | DRG 687 ==
LOC: ED 17:47 → 2S 21:03 → INTOOBSV 21:03 → SUATTDRO 21:03 → 2S 22:27